=== PATIENT | male | born 1960 | race Caucasian/White ===

== ENCOUNTER 2019-03-08 11:55 | Emergency (ER) | payer MEDICARE ==
[2019-03-08 12:07] VITALS: TEMP 98.2
--- NOTE | 2019-03-08 12:38 | ED ---
Arrhythmia/Palpitations HPI - General Chief Complaint: Arrhythmia/Palpitations Stated Complaint: Palpitations Time Seen by Provider: 03/08/19 12:13 Source: patient, family, RN notes reviewed Mode of arrival: ambulatory Limitations: no limitations - History of Present Illness Initial Comments: This is a [id number] male he does smoke and with a who states she's been doing a lot of moving of furniture recently but complains of left-sided chest pain and palpitations. He does state he also had a stent placed about 5 years ago. He states the pain does not feel somewhat to that at all. Pain is sharp left sternal nonradiating he denies any fevers chills or sweats no cough or phlegm production reported. He states his family was concerned so he came in for evaluation. He states this is been going on off all his weekend but was initially for the most part onset of yesterday he began states she's been moving boxes. He is not believe he has any history of any other heart issues or lung disease. MD Complaint: palpitations - Related Data Allergies Allergy/AdvReac Type Severity Reaction Status Date / Time No Known Allergies Allergy Verified 03/08/19 12:08 Review of Systems ROS Statement: Those systems with pertinent positive or pertinent negative responses have been documented in the HPI. ROS Other: All systems not noted in ROS Statement are negative. Past Medical History Past Medical History: Hyperlipidemia, Hypertension History of Any Multi-Drug Resistant Organisms: None Reported Past Surgical History: Adenoidectomy, Heart Catheterization With Stent, Tonsillectomy Past Psychological History: Anxiety Smoking Status: Current every day smoker Past Alcohol Use History: None Reported Past Drug Use History: None Reported General Exam - General Exam Comments Initial Comments: This is a well-developed well-nourished awake alert oriented times 3 male Limitations: no limitations General appearance: alert, in no apparent distress Head exam: Present: atraumatic, normocephalic, normal inspection Eye exam: Present: normal appearance, PERRL, EOMI. Absent: scleral icterus, conjunctival injection, periorbital swelling ENT exam: Present: normal exam, mucous membranes moist Neck exam: Present: normal inspection, full ROM, other (No stridor JVD or bruits). Absent: tenderness, meningismus, lymphadenopathy Respiratory exam: Present: normal lung sounds bilaterally, chest wall tenderness (Reproducible tenderness palpation on the left costal sternal margin no step-off or crepitation). Absent: respiratory distress, wheezes, rales, rhonchi, stridor Cardiovascular Exam: Present: regular rate, normal rhythm, normal heart sounds. Absent: systolic murmur, diastolic murmur, rubs, gallop, clicks GI/Abdominal exam: Present: soft, normal bowel sounds. Absent: distended, tenderness, guarding, rebound, rigid Extremities exam: Present: normal inspection, full ROM, normal capillary refill. Absent: tenderness, pedal edema, joint swelling, calf tenderness Back exam: Present: normal inspection Neurological exam: Present: alert, oriented X3, CN II-XII intact Psychiatric exam: Present: normal affect, normal mood Skin exam: Present: warm, dry, intact, normal color. Absent: rash Course Vital Signs 03/08/19 03/08/19 03/08/19 12:03 12:15 12:30 Temperature 98.2 F Pulse Rate 61 62 66 Respiratory 18 13 17 Rate Blood Pressure 161/82 183/100 O2 Sat by Pulse 99 97 Oximetry 03/08/19 03/08/19 03/08/19 13:01 13:30 14:00 Temperature Pulse Rate 56 L 66 64 Respiratory 21 14 16 Rate Blood Pressure 181/93 148/94 147/111 O2 Sat by Pulse 83 L 99 94 L Oximetry 03/08/19 14:20 Temperature Pulse Rate 78 Respiratory 16 Rate Blood Pressure 129/63 O2 Sat by Pulse 98 Oximetry EKG Findings - EKG Results: EKG: interpreted by ERMD ([place] [address] QRS duration 94 QT/QTC 442/455), sinus rhythm Procedures - Smoking Cessation Time Spent Discussing Smoking Cessation w/Patient (Minutes): 3 Patient Acknowledges Need for Cessation: Yes Medical Decision Making - Medical Decision Making I did reevaluate patient several occasions he does admit that he is on chronic pain medication has not had any for 3 days this is likely part of the symptoms for his legs up. He does have a pain contract. He thinks he can locate his medication tomorrow. 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 He will be discharged. The presentation of this has consistent with costochondritis a musculoskeletal pain. He did also discuss smoking cessation. - Lab Data Result diagrams: 03/08/19 12:26 03/08/19 12:26 Lab Results 03/08/19 03/08/19 03/08/19 Range/Units 12:26 12:26 12:26 WBC 8.5 (3.8-10.6) k/uL RBC 4.95 (4.30-5.90) m/uL Hgb 14.7 (13.0-17.5) gm/dL Hct 43.0 (39.0-53.0) % MCV 86.8 (80.0-100.0) fL MCH 29.7 (25.0-35.0) pg MCHC 34.2 (31.0-37.0) g/dL RDW 12.6 (11.5-15.5) % Plt Count 388 (150-450) k/uL Neutrophils % 68 % Lymphocytes % 22 % Monocytes % 6 % Eosinophils % 2 % Basophils % 0 % Neutrophils # 5.8 (1.3-7.7) k/uL Lymphocytes # 1.9 (1.0-4.8) k/uL Monocytes # 0.5 (0-1.0) k/uL Eosinophils # 0.2 (0-0.7) k/uL Basophils # 0.0 (0-0.2) k/uL PT 9.8 (9.0-12.0) sec INR 0.9 (<1.2) APTT 25.0 (22.0-30.0) sec Sodium 139 (137-145) mmol/L Potassium 4.4 (3.5-5.1) mmol/L Chloride 106 (98-107) mmol/L Carbon Dioxide 23 (22-30) mmol/L Anion Gap 10 mmol/L BUN 18 (9-20) mg/dL Creatinine 0.95 (0.66-1.25) mg/dL Est GFR (CKD-EPI)AfAm >90 (>60 ml/min/1.73 sqM) Est GFR (CKD-EPI)NonAf 87 (>60 ml/min/1.73 sqM) Glucose 157 H (74-99) mg/dL Calcium 9.9 (8.4-10.2) mg/dL Magnesium 1.9 (1.6-2.3) mg/dL Total Bilirubin 0.8 (0.2-1.3) mg/dL AST 40 (17-59) U/L ALT 25 (4-49) U/L Alkaline Phosphatase 70 (38-126) U/L Creatine Kinase 251 H (55-170) U/L Troponin I (0.000-0.034) ng/mL Total Protein 7.4 (6.3-8.2) g/dL Albumin 4.6 (3.5-5.0) g/dL TSH 0.784 (0.465-4.680) mIU/L 03/08/19 Range/Units 12:26 WBC (3.8-10.6) k/uL RBC (4.30-5.90) m/uL Hgb (13.0-17.5) gm/dL Hct (39.0-53.0) % MCV (80.0-100.0) fL MCH (25.0-35.0) pg MCHC (31.0-37.0) g/dL RDW (11.5-15.5) % Plt Count (150-450) k/uL Neutrophils % % Lymphocytes % % Monocytes % % Eosinophils % % Basophils % % Neutrophils # (1.3-7.7) k/uL Lymphocytes # (1.0-4.8) k/uL Monocytes # (0-1.0) k/uL Eosinophils # (0-0.7) k/uL Basophils # (0-0.2) k/uL PT (9.0-12.0) sec INR (<1.2) APTT (22.0-30.0) sec Sodium (137-145) mmol/L Potassium (3.5-5.1) mmol/L Chloride (98-107) mmol/L Carbon Dioxide (22-30) mmol/L Anion Gap mmol/L BUN (9-20) mg/dL Creatinine (0.66-1.25) mg/dL Est GFR (CKD-EPI)AfAm (>60 ml/min/1.73 sqM) Est GFR (CKD-EPI)NonAf (>60 ml/min/1.73 sqM) Glucose (74-99) mg/dL Calcium (8.4-10.2) mg/dL Magnesium (1.6-2.3) mg/dL Total Bilirubin (0.2-1.3) mg/dL AST (17-59) U/L ALT (4-49) U/L Alkaline Phosphatase (38-126) U/L Creatine Kinase (55-170) U/L Troponin I <0.012 (0.000-0.034) ng/mL Total Protein (6.3-8.2) g/dL Albumin (3.5-5.0) g/dL TSH (0.465-4.680) mIU/L - Radiology Data Radiology results: report reviewed (I did review the imaging and report no acute findings.), image reviewed Disposition Clinical Impression: Acute costochondritis, Myalgia, Palpitations Disposition: HOME SELF-CARE Condition: Good Instructions (If sedation given, give patient instructions): Heart Palpitations (ED), Costochondritis (ED), Musculoskeletal Pain (ED) Additional Instructions: Resume taking your home medications Is patient prescribed a controlled substance at d/c from ED?: No Referrals: Anthony Francisco DO [Primary Care Provider] - 1-2 days
[2019-03-08 12:53] LABS: Basophils % (A) 0 %; Eosinophils # (A) 0.2 k/uL (0-0.7); Eosinophils % (A) 2 %; HGB 14.7 gm/dL (13.0-17.5); Lymphocytes # (A) 1.9 k/uL (1.0-4.8); Lymphocytes % (A) 22 %; MCH 29.7 pg (25.0-35.0); MCHC 34.2 g/dL (31.0-37.0); MCV 86.8 fL (80.0-100.0); Mean Platelet Volume 7.7; Monocytes # (A) 0.5 k/uL (0-1.0); Monocytes % (A) 6 %; Neutrophils # (A) 5.8 k/uL (1.3-7.7); Neutrophils % (A) 68 %; Platelet Count 388 k/uL (150-450); RBC 4.95 m/uL (4.30-5.90); RDW 12.6 % (11.5-15.5); WBC 8.5 k/uL (3.8-10.6)
--- NOTE | 2019-03-08 12:59 | XR ---
EXAMINATION TYPE: XR chest 2V DATE OF EXAM: 03/08/2019 HISTORY: dysrhythmia. REFERENCE: NONE. FINDINGS: Tubing projects over the right chest. The lungs are clear. Pleural spaces are clear. The heart is not enlarged. IMPRESSION: NO ACTIVE INTRATHORACIC DISEASE.
[2019-03-08 13:04] LABS: INR 0.9 (<1.2); Prothrombin Time 9.8 sec (9.0-12.0)
[2019-03-08 13:10] LABS: ALT 25 U/L (4-49); AST 40 U/L (17-59); African American GFR (CKD) >90 (>60 ml/min/1.73 sqM); Albumin 4.6 g/dL (3.5-5.0); Alkaline Phosphatase 70 U/L (38-126); Anion Gap 10 mmol/L; Blood Urea Nitrogen 18 mg/dL (9-20); Calcium 9.9 mg/dL (8.4-10.2); Carbon Dioxide 23 mmol/L (22-30); Chloride 106 mmol/L (98-107); Creatine Kinase 251 U/L (55-170); Glucose 157 mg/dL (74-99); Magnesium 1.9 mg/dL (1.6-2.3); Non-African American GFR(CKD) 87 (>60 ml/min/1.73 sqM); Potassium 4.4 mmol/L (3.5-5.1); Sodium 139 mmol/L (137-145); Total Bilirubin 0.8 mg/dL (0.2-1.3); Total Protein 7.4 g/dL (6.3-8.2)
[2019-03-08] MEDS ORDERED: LORazepam 2 MG/ML INJ IV STA (13:14)
[2019-03-08] MEDS ORDERED: KETOROLAC 30 MG/ML 1 ML VIAL IVP STA (13:44)
[2019-03-08 14:04] VITALS: RESP 16
[2019-03-08 14:21] VITALS: BP 129/63; PULSE 78
[2019-03-08] MEDS ORDERED: HYDROcodone/APAP 10-325MG 1 EACH TAB PO ONE (14:35)
== END 2019-03-08 14:47 | disposition home or self-care (01) ==
LOC: EC 11:55
DX: M94.0 Chondrocostal junction syndrome [Tietze] (principal); M79.10 Myalgia, unspecified site; R00.2 Palpitations; I10 Essential (primary) hypertension; F17.200 Nicotine dependence, unspecified, uncomplicated; Z95.5 Presence of coronary angioplasty implant and graft
CPT/HCPCS: 99285 ×2; 96374 ×2; 96375 ×2; 36415; 80053; 84443; 82550; 83735; 84484; 85025; 85610; 85730; 71046; J2060; J1885